=== PATIENT | female | born 1995 | race Caucasian/White ===

== ENCOUNTER 2018-08-19 15:57 | Emergency (ER) | payer OTHER ==
[~2018-08-19] VITALS: Ht 170.2 cm; Wt 90.7 kg
[2018-08-19 18:01] VITALS: BP 142/88
[2018-08-20 02:06] LABS: HEPATITIS B SURFACE AG Negative (Negative); HIV-1/HIV-2 ANTIBODY Non Reactive (Non Reactive)
== END 2018-08-19 18:01 | disposition home or self-care (01) ==
LOC: M.ERS 15:57
PROVIDERS: Nurse Practitioner
DX: S60.941A Unspecified superficial injury of left index finger, initial encounter (principal); Z88.8 Allergy status to other drugs, medicaments and biological substances; Z88.2 Allergy status to sulfonamides; W46.1XXA Contact with contaminated hypodermic needle, initial encounter; Y92.89 Other specified places as the place of occurrence of the external cause; Y93.89 Activity, other specified; Y99.8 Other external cause status